=== PATIENT | female | born 1965 | race Caucasian/White ===

== ENCOUNTER → 2018-03-08 | Outpatient (CLI) | payer MEDICARE ==
[~2018-03-08] MED LIST: AMLODIPINE-BEN1 EAC3 PO; CIPRO500 MG PO; HYDROCODONE-AP1 EAC6 PO; LEVOTHYROXIN0.125 M1 PO; LISINOPRIL10 MG PO; MOTION RELIEF25 MG PO
== END ==
LOC: M.ULTRA 10:26
DX: R10.31 Right lower quadrant pain (principal); R93.89 Abnormal findings on diagnostic imaging of other specified body structures; Z78.0 Asymptomatic menopausal state

== ENCOUNTER → 2019-04-26 | Outpatient (CLI) | payer MEDICARE | LOC: M.CT 13:30 | DX: N20.0 Calculus of kidney (principal); M41.86 Other forms of scoliosis, lumbar region; M43.27 Fusion of spine, lumbosacral region; K57.30 Diverticulosis of large intestine without perforation or abscess without bleeding; I70.0 Atherosclerosis of aorta; Z90.49 Acquired absence of other specified parts of digestive tract ==

== ENCOUNTER 2019-06-03 14:24 | Inpatient (IN) | payer MEDICARE ==
[~2019-06-03] VITALS: Ht 149.9 cm; Wt 64.4 kg
[2019-06-03 14:41] VITALS: BP 130/70
--- NOTE | 2019-06-03 15:27 | NUR ---
PT BROUGHT BACK TO ED ROOM FROM WAITING AREA; STEADY GAIT.
[2019-06-03 15:43] LABS: URINE BILIRUBIN NEGATIVE (Negative); URINE BLOOD 2+ (Negative); URINE CLARITY CLEAR; URINE COLOR YELLOW; URINE GLUCOSE-RANDOM NEGATIVE (Negative); URINE KETONES NEGATIVE (Negative); URINE LEUKOCYTES-REFLEX TRACE (Negative); URINE NITRITE-REFLEX NEGATIVE (Negative); URINE PROTEIN NEGATIVE (Negative); URINE SPECIFIC GRAVITY 1.025 (1.005-1.030); URINE UROBILINOGEN 0.2 E.U./dl (0.2-1.0)
[2019-06-03 15:51] LABS: SQUAMOUS >10 Many /LPF (0-3)
[2019-06-03 15:52] LABS: CASTS None Seen /LPF (None Seen); CRYSTALS None Seen /LPF (None Seen); MUCUS 4-6 Moderate strn/LPF (None Seen); URINE RBC 0-2 Rare /HPF (0-2); URINE WBC-REFLEX 6-15 Few /HPF (0-5)
[2019-06-03 16:07] LABS: ABSOLUTE BASOPHILS 0.1 thou/uL (0.0-0.2); ABSOLUTE EOSINOPHILS 0.1 thou/uL (0.0-0.7); ABSOLUTE LYMPHOCYTES 1.7 thou/uL (0.8-5.3); ABSOLUTE NEUTROPHILS 10.9 thou/uL (1.6-8.1); BASOPHILS 0.6 %; EOSINOPHILS 0.5 %; HEMATOCRIT 39.7 % (37.0-47.0); HEMOGLOBIN 13.4 gm/dL (12.0-15.0); LYMPHOCYTES 12.5 %; MCH 29.7 pg (26.0-34.0); MCHC 33.7 g/dL (28.0-37.0); MCV 88.2 fL (80.0-100.0); MONOCYTES 7.5 %; MPV 8.6 fl. (7.2-11.1); NUCLEATED RBCS 0 /100WBC; PLATELET COUNT* 404 thou/uL (150-400); POLYS 78.9 %; RBC 4.51 mil/uL (4.20-5.00); RDW-CV 13.1 % (10.5-14.5); WBC 13.9 thou/uL (4.0-11.0)
[2019-06-03 16:12] LABS: CALCIUM 8.8 mg/dL (8.5-10.1); CREATININE 0.9 mg/dL (0.6-1.3); POTASSIUM 3.5 mmol/L (3.5-5.1)
[2019-06-03 16:16] LABS: ALBUMIN 3.9 g/dL (3.4-5.0); TOTAL BILIRUBIN 0.7 mg/dL (<0.1-1.0); TOTAL PROTEIN 7.9 g/dL (6.4-8.2)
--- NOTE | 2019-06-03 16:47 | NUR ---
RUMA NOTIFIED UPON PT RETURN FROM CT. PT CONNECTED TO MONITOR
[2019-06-03 19:54] VITALS: BP 134/68
[2019-06-03 20:00] VITALS: BP 110/60
[2019-06-03] MEDS ORDERED: CLONIDINE HCL0.2 M2 PO (22:46)
[2019-06-03] MEDS ORDERED: LOSARTAN-HCTZ1 EAC3 PO (22:47)
[2019-06-03] MEDS ORDERED: LOSARTAN-HCTZ1 EAC2 PO (22:48)
--- NOTE | 2019-06-03 23:48 | NUR ---
PT ADMITTED TO RM 304 FROM ER @ 1999. ALERT AND ORIENTED. VSS ON RA. UP AD FAVIOLA. ADMSSION HX AND ASSESSMENT DOCUMENTED. PAIN MED GIVEN FOR BARTON. PT SAID SHE FELT DIZZY AFTER FENTANYL WAS GIVEN. VSS RECHECKED AND STABLE. MED HELPED WITH BARTON. HOME MEDS RECONCILED. RAC IV WITH NS 70ML/HR. NPO. SURGERY CONSULTED. SON AT BEDSIDE. WILL CONTINUE TO MONITOR.
--- NOTE | 2019-06-04 05:27 | NUR ---
PT SLEPT OFF AND ON THIS SHIFT. SON AT BEDSIDE. PT INFORMED OF POSSIBLE SUGERY TODAY @ ABOUT 1500. NPO. CALL LIGHT WITHIN REACH. HOURLY ROUNDINGS MADE. WILL CONTINUE TO MONITOR.
[2019-06-04 07:45] VITALS: BP 130/70
--- NOTE | 2019-06-04 11:02 | EKG ---
[place] [address] ELECTROCARDIOGRAM REPORT Name: MYNOR HOUSE Room: [address] ADM IN M.R.#: [id number] Admission: 06/03/19 Attend Phys: Anitra Carmichael Discharge: Date of : 65 Report #: [id number] THIS REPORT FOR: //name// [facility] ED Test Date: 2019-06-03 Test Time: 16:09:18 Pat Name: MYNOR HOUSE Department: Room: [facility] Gender: F Infrastructure Technician: MS : 1965 Requested By: Susan Yeung Order Number: [id number] MD: Chun Caceres Measurements Intervals [place] Rate: 80 P: 41 SC: 151 QRS: -12 QRSD: 79 T: 72 QT: 356 QTc: 411 Interpretive Statements Sinus rhythm Compared to ECG 10/17/2016 10:11:31 ST (T wave) deviation now present no change Electronically Signed On 06-04-2019 11:01:53 BAG CUTTER by Chun Caceres [email or web address] <ELECTRONICALLY SIGNED> By: Chun Caceres MD, [facility] 06/04/19 1101 [id number] [id number] Chun Caceres MD, [facility] /EPI
--- NOTE | 2019-06-04 11:10 | NUR ---
SW met with pt to complete initial assessment, introduce self, and SW role. Pt alert, oriented, pleasant. Pt preparing for surgery at 3 pm today. Pt is independent in mobility and ADLs and did not anticipate any dc needs at this time. SW to remain available to assist with safe dc planning if needs arise.
[2019-06-04 18:15] VITALS: BP 122/58
--- NOTE | 2019-06-04 18:59 | NUR ---
REPORT RECEIVED FROM RECOVERY NURSE. PATIENT RESTING IN BED WITH FAMILY AT BEDS. ALL SAFETY MEASURES MAINTAINED. PATIENT AND FAMILY DENY FURTHER NEEDS AT THIS TIME.
[2019-06-04 19:40] VITALS: BP 143/70
--- NOTE | 2019-06-05 05:33 | NUR ---
PT SLEPT WELL THIS SHIFT. PAIN MEDS GIVEN THIS SHIFT. VSS ON RA. 3 INCISIONS TO LT SIDE OF ABD DRY AND INTACT. PT SLEPT OFF AND ON THIS SHIFT. FAMILY AT BEDSIDE BEGINNING OF SHIFT. SON AT BEDSIDE THROUGH SHIFT. PT UP TO BATHROOM X1 ASSIST. CALL LIGHT WITHIN REACH. HOURLY ROUNDINGS MADE. WILL CONTINUE TO MONITOR.
[2019-06-05 07:30] VITALS: BP 155/79
[2019-06-05 15:18] LABS: HEMOGLOBIN 12.1 gm/dL (12.0-15.0); MCHC 33.5 g/dL (28.0-37.0); MCV 89.4 fL (80.0-100.0); MPV 8.3 fl. (7.2-11.1); NUCLEATED RBCS 0 /100WBC; PLATELET COUNT* 397 thou/uL (150-400); RBC 4.03 mil/uL (4.20-5.00); RDW-CV 13.1 % (10.5-14.5); WBC 14.7 thou/uL (4.0-11.0)
[2019-06-05 15:32] LABS: ALBUMIN 3.3 g/dL (3.4-5.0); CALCIUM 8.4 mg/dL (8.5-10.1); CREATININE 0.8 mg/dL (0.6-1.3); MAGNESIUM 1.9 mg/dL (1.8-2.4); TOTAL BILIRUBIN 0.4 mg/dL (<0.1-1.0); TOTAL PROTEIN 7.6 g/dL (6.4-8.2)
[2019-06-05 15:47] LABS: ABSOLUTE LYMPHOCYTES 0.4 thou/uL (0.8-5.3); ABSOLUTE NEUTROPHILS 14.3 thou/uL (1.6-8.1); PLATELET ESTIMATE ADEQUATE
--- NOTE | 2019-06-05 16:22 | NUR ---
PATIENT UP AND AMBULATING AROUND ROOM WITHOUT DIFFICULTY. C/O ABD PAIN TO LAP SITES, PRN TRAMADOL GIVEN PER JUL ORDERS WITH GOOD RELIEF NOTED. PATIENT WAS ORDERED HYDROCODONE BY DR. GOODRICH BUT IT WAS DC'D, PATIENT STATED SHE HAD TAKEN IT BEFORRE AND IT MADE HER VERY DIZZY. ADVANCED TO FULL LIQUID DIET AT LUNCH PER DR. GOODRICH AND MAY HAVE REGULAR DIET FOR DINNER. SCHED HOME MEDS REORDERED AND GIVEN PER JUL. PASSING STATES SHE IS STARTING TO BELCH AND PASS FLATUS. PATIENT HOPEFUL TO BE DISCHARGED TOMORROW.
[2019-06-05 16:23] VITALS: BP 178/88
[2019-06-05 19:40] VITALS: BP 171/85
--- NOTE | 2019-06-06 05:23 | NUR ---
PT ALERT AND ORIENTED. VSS ON RA. AD FAVIOLA. MEDS GIVEN PER EMAR. PT SLEPT WELL THIS SHIFT. NO PAIN MED GIVEN YET THIS SHIFT. PT DENIES N/V. 3 LAP SITES TO LT SIDE OF ABD INTACT. SON AT BEDSIDE THIS SHIFT. CALL LIGHT WITHIN REACH. HOURLY ROUNDINGS MADE. WILL CONTINUE TO MONITOR.
[2019-06-06 07:00] VITALS: BP 184/86
--- NOTE | 2019-06-06 09:16 | NUR ---
INITAL ASSESSMENT COMPLETED CHARTED. VSS. PT C/O PAIN TO INSCION SITES. PRN PAIN MEDS GIVEN WITH GOOD RESULTS. PT HAD BM THIS MORNING. REFER TO COMPUTER CHARTING FOR FURTHER DETAILS. CLWR.
[2019-06-06 11:38] VITALS: BP 184/86
[2019-06-06] MEDS ORDERED: AUGMENTIN 875-1 EACH PO (13:00)
[2019-06-06] MEDS ORDERED: TRAMADOL 50 MG50 MG PO (13:02)
--- NOTE | 2019-06-07 11:08 | PATH ---
[address] [address] PATHOLOGY RPT PROCEDURE Name: MATHEWALYCE Room: [address] IN M.R.#: [id number] Admission: 06/03/19 Date of : 65 Discharge: 06/06/19 Report #: [id number] Path Case #: [id number] [facility] Accession Number: [id number] . 01 Material submitted: . gastrointestinal site - MECKEL'S DIVERTICULUM . 01 Clinical history: . Intussusception Meckel's diverticulum . 02 Diagnosis: Meckel's diverticulum: - Benign small intestinal tissue with prominent mucosal necrosis and transmural acute inflammation and serositis. . (ALFRED:mm; 06/06/2019) [facility] 06/06/2019 1358 Local . 02 Electronically signed: . Tan Montgomery MD, Pathologist NPI- [id number] . 01 Gross description: . The specimen is received in formalin, labeled "Mathew, Alyce, Meckel's diverticulum" and consists of a segment of gastrointestinal tissue with attached lobulated yellow tissue measuring 5.4 x 3.8 x 2.4 cm. There is a margin which is closed with a line of maria luz. The serosa is pink-umana to focally hemorrhagic with fibrous adhesions. It is opened revealing a green umana to pink necrotic mucosa. Mat Making Machine Tender sections are submitted in A1-A2 with the margin in A1. (SDY; 06/05/2019) [facility]/SYU 06/06/2019 1355 Local . 02 Pathologist provided ICD-10: K57.12, K65.8 . 02 CPT . 797745 Specimen Comment: A courtesy copy of this report has been sent to [phone], [phone] Specimen Comment: [id number], Specimen Comment: Report sent to ,DR DIETRICH / DR ALEJANDRA Performed at: [address] [facility] [id number] MD Andrés Diaz MD Phone: [phone] Performed at: [address] [place] [address] PATHOLOGY RPT PROCEDURE Name: ALYCE HOUSE Room: [address] DIS IN M.R.#: [id number] Admission: 06/03/19 Date of : 65 Discharge: 06/06/19 Report #: [id number] Path Case #: [id number] [facility] [address] GARY Fitzgerald [id number] MD Tan Montgomery MD Phone: [phone]
== END 2019-06-06 13:57 | disposition home or self-care (01) | DRG 330 ==
LOC: M.ERS 14:24 → M.3W 18:36 → M.TBA-ER 18:36 → M.3W 19:55
PROVIDERS: Nurse Practitioner Family; ADMIT Internal Medicine
PROC: 0DB84ZZ Excision of Small Intestine, Percutaneous Endoscopic Approach (ICD-10-PCS; principal; 2019-06-04)
DX: K57.12 Diverticulitis of small intestine without perforation or abscess without bleeding (principal); K56.1 Intussusception; R65.10 Systemic inflammatory response syndrome (SIRS) of non-infectious origin without acute organ dysfunction; I10 Essential (primary) hypertension; K52.9 Noninfective gastroenteritis and colitis, unspecified; E03.9 Hypothyroidism, unspecified; Z87.442 Personal history of urinary calculi; Z88.2 Allergy status to sulfonamides; Z23 Encounter for immunization; Z79.899 Other long term (current) drug therapy

== ENCOUNTER → 2019-12-10 | Outpatient (CLI) | payer MEDICARE ==
[~2019-12-10] MED LIST changes: +AUGMENTIN 875-1 EACH PO; +CLONIDINE HCL0.2 M2 PO; +LOSARTAN-HCTZ1 EAC2 PO; +LOSARTAN-HCTZ1 EAC3 PO; +TRAMADOL 50 MG50 MG PO
== END ==
LOC: M.RAD 09:25
PROVIDERS: ATTEND Family Medicine
DX: Z12.31 Encounter for screening mammogram for malignant neoplasm of breast (principal); M81.0 Age-related osteoporosis without current pathological fracture

== ENCOUNTER 2020-10-03 19:02 | Emergency (ER) | payer MEDICARE ==
[~2020-10-03] VITALS: Ht 149.9 cm; Wt 62.6 kg
[2020-10-03] MEDS ORDERED: EUTHYROX125 MCG PO (19:27)
[2020-10-03] MEDS ORDERED: CIPRO500 M1 PO (19:28)
[2020-10-03 20:09] LABS: ABSOLUTE BASOPHILS 0.1 thou/uL (0.0-0.2); ABSOLUTE EOSINOPHILS 0.1 thou/uL (0.0-0.7); ABSOLUTE MONOCYTES 1.7 thou/uL (0.0-1.2); ABSOLUTE NEUTROPHILS 10.7 thou/uL (1.6-8.1); BASOPHILS 0.7 %; EOSINOPHILS 0.4 %; HEMOGLOBIN 11.4 gm/dL (12.0-15.0); LYMPHOCYTES 7.6 %; MCH 29.7 pg (26.0-34.0); MCHC 33.4 g/dL (28.0-37.0); MCV 89.1 fL (80.0-100.0); MONOCYTES 12.2 %; NUCLEATED RBCS 0 /100WBC; PLATELET COUNT* 342 thou/uL (150-400); POLYS 79.1 %; RBC 3.82 mil/uL (4.20-5.00); RDW-CV 13.1 % (10.5-14.5); WBC 13.6 thou/uL (4.0-11.0)
[2020-10-03 20:25] LABS: CALCIUM 8.6 mg/dL (8.5-10.1); CREATININE 0.9 mg/dL (0.6-1.3); POTASSIUM 3.4 mmol/L (3.5-5.1)
[2020-10-03 20:30] LABS: ALBUMIN 2.8 g/dL (3.4-5.0); TOTAL BILIRUBIN 0.2 mg/dL (<0.1-1.0)
[2020-10-03 20:40] LABS: URINE BILIRUBIN NEGATIVE (Negative); URINE BLOOD 3+ (Negative); URINE CLARITY CLEAR; URINE COLOR YELLOW; URINE GLUCOSE-RANDOM 2+ (Negative); URINE KETONES NEGATIVE (Negative); URINE LEUKOCYTES-REFLEX NEGATIVE (Negative); URINE NITRITE-REFLEX NEGATIVE (Negative); URINE PROTEIN 1+ (Negative); URINE UROBILINOGEN 0.2 E.U./dl (0.2-1.0)
[2020-10-03 20:48] LABS: MUCUS None Seen strn/LPF (None Seen); SQUAMOUS >10 Many /LPF (0-3); URINE RBC >20 Many /HPF (0-2)
[2020-10-03 20:49] LABS: BACTERIA-REFLEX 1-9 Few /HPF (None Seen); CASTS None Seen /LPF (None Seen); CRYSTALS None Seen /LPF (None Seen); URINE WBC-REFLEX 0-5 Rare /HPF (0-5)
[2020-10-03 21:40] LABS: INFLUENZA A ANTIGEN Negative (Negative); INFLUENZA B ANTIGEN Negative (Negative)
[2020-10-03 22:52] VITALS: BP 168/73
--- NOTE | 2020-10-05 13:52 | EKG ---
[place] [address] ELECTROCARDIOGRAM REPORT Name: MYNOR HOUSE Room: [facility]#: [id number] Admission: 10/03/20 Attend Phys: Discharge: 10/03/20 Date of : 65 Date of Service: 10/03/201955 Report #: [id number] THIS REPORT FOR: //name// [facility] ED Test Date: 2020-10-03 Test Time: 19:56:44 Pat Name: MYNOR HOUSE Department: Room: Gender: Operator Cavity Pump: : 1965 Requested By: Roxana Robles Order Number: [id number] MD: Ok Rowland Measurements Intervals [place] Rate: 104 P: 92 AR: 150 QRS: 86 QRSD: 82 T: 95 QT: 335 QTc: 441 Interpretive Statements Sinus tachycardia Nonspecific T abnrm, anterolateral leads Compared to ECG 06/03/2019 16:09:18 Sinus rhythm no longer present Electronically Signed On 10-05-2020 13:51:51 CDT by Ok Rowland [email or web address] <ELECTRONICALLY SIGNED> By: Ok Rowland MD, [facility] 10/05/20 1351 55 55 Ok Rowland MD, [facility] /EPI
== END 2020-10-03 22:52 | disposition home or self-care (01) ==
LOC: M.ERS 19:02
PROVIDERS: Personal Emergency Response Attendant
DX: E86.0 Dehydration (principal); Z20.822 Contact with and (suspected) exposure to COVID-19; R50.9 Fever, unspecified; I10 Essential (primary) hypertension; Z88.2 Allergy status to sulfonamides; Z98.51 Tubal ligation status; Z98.890 Other specified postprocedural states; Z87.442 Personal history of urinary calculi